=== PATIENT | female | born 1940 | race Caucasian/White ===

== ENCOUNTER 2016-06-02 12:08 | Emergency (ER) | payer MEDICARE ==
[~2016-06-02] VITALS: Ht 152.4 cm; Wt 90.0 kg
[~2016-06-02 12:08] MED LIST: FURO10S PO; GLIP5 PO; HYDROCODONE; LEVEMIR SQ; MENTANX; METH2.5 PO; POTA-243 PO; PRIL20TA2 PO; Z.0.UNKNOWN
[2016-06-02 12:12] VITALS: BP 135/63; PULSE 98; RESP 17; TEMP 98.8; O2SAT 98
[2016-06-02] MEDS ORDERED: AUGM875T PO (12:30)
[2016-06-02] MEDS ORDERED: SUDA120T PO (12:30)
[2016-06-02] MEDS ORDERED: MUCI30TA2 PO (12:30)
--- NOTE | 2016-06-02 12:30 | PD ---
HPI Chief Complaint: Cold / Flu Symptoms Time Seen by Provider: 12:20 Travel History International Travel<30 days: No Contact w/Intl Traveler<30days: No Traveled to known affect area: No History of Present Illness HPI Patient is a 76-year-old female here with flulike symptoms. She has had approximately 1.5-2 weeks of nasal congestion, postnasal drip. This results in a gaggy sensation with some nausea in the back of the pharynx. Associated cough , states she is bringing up the phlegm that stripping on the back of the throat. No fevers, chills. She feels fatigued. She's been trying Robitussin- DM and cough drops without much improvement of her symptoms. She is vacationing here at the [facility] from [place], traveled in March and has been well in the interim. [facility] Past Medical History Arthritis: Yes (R/A) Cancer: Yes (HX OF COLON) Cardiovascular Problems: Yes (PERIPHERAL EDEMA AT TIMES, SUBJECT TO CELLULITIS) Diabetes: Yes Diminished Hearing: No GERD: Yes Hypertension: Yes ?: Not Ovarian Cysts: Yes (REMOVED FROM RIGHT OVARY) Past Surgical History Abdominal Surgery: Yes (FATTY TUMOR REMOVED) Appendectomy: Yes Cholecystectomy: Yes Genitourinary Surgery: Yes (PART OF COLON REMOVED DUE TO CANCER) Gynecologic Surgery: Yes (UTERUS REMOVED) Other Surgery: Yes (DEVIATED SEPTUM REPAIRED) Social History Alcohol Use: No Tobacco Use: No Substance Use: No Allergies-Medications (Allergen,Severity, Reaction): Coded Allergies: Adhesives (Verified Allergy, Mild, rash, 06/02/16) Latex (Verified Allergy, Unknown, 06/02/16) Reported Meds & Prescriptions Reported Meds & Active Scripts Active Reported Prilosec Otc (Omeprazole Magnesium) 20 Mg Tab 0 PO DAILY Rheumatrex (Methotrexate) 2.5 Mg Tab 0 PO UNKNOWN DOSE K-Dur (Potassium Chloride) 10 Meq Tabcr 0 PO UNKNOWN DOSE Furosemide 10 Mg/Ml Aspen 0 PO UNKNOWN DOSE Unknown Meds (Miscellaneous Medication) Misc [Mentanx] [Hydrocodone] Levemir Insulin (Insulin Detemir) 100 Units/Ml Inj 0 SQ HS UNKNOWN DOSE Glucotrol (Glipizide) 5 Mg Tab 0 PO BID UNKNOWN DOSE Glipizide 5 Mg Tab 0 PO Review of Systems Except as stated in HPI: all other systems reviewed are Neg Physical Exam Narrative GENERAL: Elderly female in no acute distress SKIN: Focused skin assessment warm/dry. HEAD: Normocephalic. EYES: No scleral icterus. No injection or drainage. ENT: Nasal mucosal injection with posterior nasal drip. Posterior pharynx itself is minimally erythematous but no exudate or palatal petechiae.. Mucous membranes pink and moist. TMs clear bilaterally. NECK: Supple without stridor CARDIOVASCULAR: Regular rate and rhythm. No murmur appreciated. RESPIRATORY: No accessory muscle use. Clear to auscultation. Breath sounds equal bilaterally. GASTROINTESTINAL: Abdomen soft, non-tender, nondistended. Obese MUSCULOSKELETAL: No obvious deformities. No edema. NEUROLOGICAL: Awake and alert. Motor grossly within normal limits. Normal speech. PSYCHIATRIC: Appropriate mood and affect; insight and judgment normal. Data Data Last Documented VS Vital Signs Date Time Temp Pulse Resp B/P Pulse Ox O2 Delivery O2 Flow Rate FiO2 06/02/16 12:12 98.8 98 17 135/63 98 MDM Medical Decision Making Medical Screen Exam Complete: Yes Emergency Medical Condition: Yes Medical Record Reviewed: Yes Differential Diagnosis 76-year-old female here with 1.5-2 weeks of nasal congestion, postnasal drip, sore throat and cough. Exam is consistent with sinusitis, viral versus bacterial versus allergic. I think her postnasal drip as well as contributing to her sore throat and cough. Narrative Course Patient is overall well-appearing. Given the duration of her symptoms we'll treat with antibiotics, and nasally congestion and an expectorant Diagnosis Primary Impression: Sinusitis Qualified Code: J01.00 - Acute non-recurrent maxillary sinusitis Referrals: Primary Care Physician as needed Patient Instructions: General Instructions, Sinusitis (ED) Additional Instructions: Antibiotics, decongestions as prescribed. Med/Other Pt SpecificInfo: Prescription(s) given Scripts Pseudoephedrine ER 12 HR (Sudafed 12 Hour)120 Mg [id number] Mg PO BID 7 Days Prov:Shari Eldridge MD 06/02/16 Dextromethorphan-Guaifenesin (Mucinex DM)30-600 Mg Tab1 Tab PO BID PRN (CHEST CONGESTION AND/OR COUGH) #14 TAB Ref 0 Prov:Shari Eldridge MD 06/02/16 Amoxicillin-Clavulanate (Augmentin)875-125 mg [id number] Mg PO BID 7 Days Ref 0 not for use in CrCl <30 ml/min. Prov:Shari Eldridge MD 06/02/16 Disposition: 01 DISCHARGE HOME Condition: Stable Shari Eldridge MD Jun 02, 2016 12:30
== END 2016-06-02 12:58 | disposition home or self-care (01) ==
LOC: PHED 12:08
DX: J01.00 Acute maxillary sinusitis, unspecified (principal); R53.83 Other fatigue; E11.9 Type 2 diabetes mellitus without complications; I10 Essential (primary) hypertension; Z79.4 Long term (current) use of insulin; Z87.39 Personal history of other diseases of the musculoskeletal system and connective tissue; Z87.19 Personal history of other diseases of the digestive system; Z86.79 Personal history of other diseases of the circulatory system; Z85.038 Personal history of other malignant neoplasm of large intestine
CPT/HCPCS: 99283

== ENCOUNTER 2016-06-04 12:48 | Emergency (ER) | payer MEDICARE ==
[~2016-06-04] VITALS: Ht 152.4 cm; Wt 85.0 kg
[~2016-06-04 12:48] MED LIST changes: +AUGM875T PO; -FURO10S PO; -GLIP5 PO; -HYDROCODONE; -LEVEMIR SQ; -METH2.5 PO; +MUCI30TA2 PO; -POTA-243 PO; -PRIL20TA2 PO; +SUDA120T PO; -Z.0.UNKNOWN
[2016-06-04 12:56] VITALS: BP 172/77; TEMP 97.9; O2SAT 99
[2016-06-04 13:06] VITALS: BP 172/77; PULSE 112; RESP 18; TEMP 97.9; O2SAT 100
[2016-06-04] MEDS ORDERED: ZOFR4TAB PO (13:42)
[2016-06-04] MEDS ORDERED: ONDANSETRON ODT 4 MG TAB PO ONE (13:45)
--- NOTE | 2016-06-04 13:46 | PD ---
HPI Chief Complaint: Respiratory Symptoms Time Seen by Provider: 13:17 Travel History International Travel<30 days: No Contact w/Intl Traveler<30days: No Traveled to known affect area: No History of Present Illness HPI This patient was seen here 2 days ago for sinus congestion and flulike symptoms. sHe started taking Sudafed and Augmentin. Shortly thereafter she developed diarrhea. She now has nausea vomiting diarrhea. No fever. She is not short of breath. Severity symptoms is moderate. No alleviating factors. PFSH Past Medical History Hx Anticoagulant Therapy: Yes (asa 81 mg) Arthritis: Yes (R/A) Cancer: Yes (HX OF COLON) Cardiovascular Problems: Yes (htn on meds) Diabetes: Yes (type 2) Patient Takes Glucophage: No Diminished Hearing: No GERD: Yes Hypertension: Yes ?: Not Ovarian Cysts: Yes (REMOVED FROM RIGHT OVARY) Past Surgical History Abdominal Surgery: Yes (FATTY TUMOR REMOVED) Appendectomy: Yes Cholecystectomy: Yes Genitourinary Surgery: Yes (PART OF COLON REMOVED DUE TO CANCER) Gynecologic Surgery: Yes (UTERUS REMOVED) Other Surgery: Yes (DEVIATED SEPTUM REPAIRED) Social History Alcohol Use: No Tobacco Use: No Substance Use: No Allergies-Medications (Allergen,Severity, Reaction): Coded Allergies: Adhesives (Verified Allergy, Mild, rash, 06/04/16) Latex (Verified Allergy, Unknown, 06/04/16) Reported Meds & Prescriptions Reported Meds & Active Scripts Active Sudafed 12 Hour (Pseudoephedrine HCl) 120 Mg Tab 120 Mg PO BID 7 Days Mucinex DM (Dextromethorphan-Guaifenesin) 30-600 Mg Tab 1 Tab PO BID PRN Augmentin (Amoxicillin-Clavulanate) 875-125 mg Tab 875 Mg PO BID 7 Days not for use in CrCl <30 ml/min. Reported [Mentanx] Review of Systems General / Constitutional: No: Fever HENT: Positive: Rhinorrhea, Congestion, No: Headaches Cardiovascular: No: Chest Pain or Discomfort Gastrointestinal: Positive: Nausea, Vomiting, Diarrhea Physical Exam Narrative GENERAL: Well-nourished, well-developed patient in no apparent distress. SKIN: Focused skin assessment reveals no rash and nodules. Skin is Warm and dry. HEAD: Atraumatic. Normocephalic. EYES: Pupils equal and round. No scleral icterus. No injection or drainage. ENT: No nasal bleeding or discharge. Mucous membranes pink and moist. NECK: Trachea midline. No JVD. CARDIOVASCULAR: Regular rate and rhythm. No murmur appreciated. RESPIRATORY: No accessory muscle use. Clear to auscultation. Breath sounds equal bilaterally. GASTROINTESTINAL: Abdomen soft, non-tender, nondistended. Hepatic and splenic margins not palpable. MUSCULOSKELETAL: No obvious deformities. No clubbing. No cyanosis. No edema. NEUROLOGICAL: Awake and alert. No obvious cranial nerve deficits. Motor grossly within normal limits. Normal speech. PSYCHIATRIC: Appropriate mood and affect; insight and judgment normal. Data Data Last Documented VS Vital Signs Date Time Temp Pulse Resp B/P Pulse Ox O2 Delivery O2 Flow Rate FiO2 06/04/16 13:06 97.9 112 18 172/77 100 Orders Ondansetron Odt (Zofran Odt) (06/04/16 13:45) [facility] Medical Decision Making Medical Screen Exam Complete: Yes Emergency Medical Condition: Yes Medical Record Reviewed: Yes Differential Diagnosis Flu syndrome, viral gastroenteritis, medication side effect Narrative Course I have reviewed the patient's electronic medical record. I reviewed her visit from 2 days ago Patient had normal vital signs 2 days ago. Now on Sudafed she is mildly tachycardic and hypertensive. I've advised her to stop this medication and check and record her blood pressure daily. Patient developed diarrhea shortly after starting Augmentin. She just may have had progression of her virus into the GI tract causing symptoms or could be medication side effect. Difficult to tell. I've advised her to stop this as well. I think her presentation is clearly viral in nature and I'm not recommending antibiotics if there is a potential for side effects being significant. I gave her dose of Zofran here and prescription for the same I'm expecting gradual resolution of symptoms. I don't see indication for extensive workup at this time. Diagnosis Primary Impression: Nausea vomiting and diarrhea Additional Impression: Medication side effect Qualified Code: T88.7XXA - Medication side effect, initial encounter Additional Instructions: The patient was advised to follow up with their physician and return if they worsen. Med/Other Pt SpecificInfo: Prescription(s) given Scripts Ondansetron (Zofran)4 Mg Tab4 Mg PO Q6HR PRN (NAUSEA OR VOMITING) #12 TAB Ref 0 Prov:Alejo Davalos MD 06/04/16 Disposition: 01 DISCHARGE HOME Condition: Stable Alejo Davalos MD Jun 04, 2016 13:46
== END 2016-06-04 14:15 | disposition home or self-care (01) ==
LOC: PHED 12:48
DX: T36.0X1A Poisoning by penicillins, accidental (unintentional), initial encounter (principal); T44.991A Poisoning by other drug primarily affecting the autonomic nervous system, accidental (unintentional), initial encounter; R19.7 Diarrhea, unspecified; I10 Essential (primary) hypertension; M06.9 Rheumatoid arthritis, unspecified; E11.9 Type 2 diabetes mellitus without complications; Y92.9 Unspecified place or not applicable; Z79.82 Long term (current) use of aspirin
CPT/HCPCS: 99283

== ENCOUNTER 2017-05-02 12:55 | Emergency (ER) | payer MEDICARE ==
[~2017-05-02] VITALS: Ht 152.4 cm; Wt 94.0 kg
[~2017-05-02 12:55] MED LIST changes: +HUMIBIDDM PO; -MUCI30TA2 PO; +ZOFR4TAB PO
[2017-05-02 13:12] VITALS: BP 166/74; PULSE 98; RESP 18; TEMP 99.2; O2SAT 97
[2017-05-02] MEDS ORDERED: CLAR10CA3 PO (13:52)
[2017-05-02] MEDS ORDERED: FENO160T PO (13:52)
[2017-05-02] MEDS ORDERED: OMEGCAP PO (13:52)
[2017-05-02] MEDS ORDERED: MULT-65 PO (13:52)
[2017-05-02] MEDS ORDERED: GABA400C5 PO (13:52)
[2017-05-02] MEDS ORDERED: SITA1TAB2 PO (13:52)
[2017-05-02] MEDS ORDERED: LISI10TA3 PO (13:52)
[2017-05-02] MEDS ORDERED: CALC1TAB87 PO (13:52)
[2017-05-02] MEDS ORDERED: INSU1INJ5 SQ (13:52)
[2017-05-02] MEDS ORDERED: KLOR20TA3 PO (13:52)
[2017-05-02] MEDS ORDERED: HYDR-3583 PO (13:52)
[2017-05-02] MEDS ORDERED: ASPI81CH6 CHEW (13:52)
[2017-05-02] MEDS ORDERED: TEMA30CA PO (13:52)
[2017-05-02] MEDS ORDERED: FURO40TA PO (13:52)
[2017-05-02] MEDS ORDERED: METF1000 PO (13:52)
--- NOTE | 2017-05-02 14:13 | PD ---
HPI Chief Complaint: Musculoskeletal Complaint Time Seen by Provider: 13:45 Travel History International Travel<30 days: No Contact w/Intl Traveler<30days: No Traveled to known affect area: No History of Present Illness HPI 77-year-old female with PMH of RA, HTN, DM presents to the ED for evaluation of back and buttock pain after mechanical fall. Patient states that she lost her balance, fell directly onto her buttocks, landing on laminate nomi. Denies hitting her head or LOC. She was able to get up from the ground with help. She 's been able to walk and go upstairs but states that she has 8/10 pain in the back and buttocks. Pain is worsened by sitting, improved by standing or lying on her side. She denies radiation of the pain, numbness, tingling, weakness, limitations to range of motion of the lower extremities. She endorses chronic urinary incontinence. Denies fecal incontinence. She denies previous back injury. He did at home with 10 mg of [place], which she takes for her rheumatoid arthritis with no improvement in symptoms. Last dose around 9 AM. PFSH Past Medical History Hx Anticoagulant Therapy: Yes ([id number]) Anemia: Yes Arthritis: Yes (R/A) Cancer: Yes (HX OF COLON) Cardiovascular Problems: Yes (htn on meds) Diabetes: Yes Patient Takes Glucophage: Yes Diminished Hearing: No GERD: Yes Hypertension: Yes Neurologic: Yes (NEUROPATHY) Influenza Vaccination: Yes ?: Not Ovarian Cysts: Yes (REMOVED FROM RIGHT OVARY) Past Surgical History Abdominal Surgery: Yes (FATTY TUMOR REMOVED) Appendectomy: Yes Cholecystectomy: Yes Genitourinary Surgery: Yes (PART OF COLON REMOVED DUE TO CANCER) Gynecologic Surgery: Yes (UTERUS REMOVED) Other Surgery: Yes (DEVIATED SEPTUM REPAIRED) Social History Alcohol Use: Yes (RARE) Tobacco Use: No Substance Use: No Allergies-Medications (Allergen,Severity, Reaction): Coded Allergies: adhesive (Unverified Allergy, Mild, rash, 05/02/17) latex (Unverified Allergy, Unknown, RASH, 05/02/17) Reported Meds & Prescriptions Reported Meds & Active Scripts Active [place] (Hydrocodone-Acetaminophen) 10-325 Mg Tab 1 Tab PO Q6H PRN Reported Temazepam 30 Mg Cap 30 Mg PO HS PRN Januvia (Sitagliptin Phosphate) 100 Mg Tab 100 Mg PO DAILY Klor-Con M20 (Potassium Chloride Microencaps) 20 Meq Tab 20 Meq PO DAILY Lisinopril 10 Mg Tab 10 Mg PO DAILY Multi-Vitamin Daily (Multiple Vitamin) 1 Tab Tab 1 Tab PO DAILY Gabapentin 400 Mg Cap 400 Cap PO TID Hydrocodone-Acetaminophen 10-325 mg Tab 1 Tab PO Q8HR PRN Metformin (Metformin HCl) 1,000 Mg Tab 1,000 Mg PO BIDPC Levemir Flextouch Pen Inj (Insulin Detemir) 300 unit/3 ML Pen 1 Units SQ Furosemide 40 Mg Tab 40 Mg PO DAILY Aspirin Low Dose (Aspirin) 81 Mg Chew 81 Mg CHEW DAILY Claritin (Loratadine) 10 Mg Cap 10 Mg PO DAILY Fenofibrate 160 Mg Tab 160 Mg PO DAILY Calcium 600 with Vitamin D (Calcium Carbonate-Cholecalciferol) 600-400 mg-Unit Tab 1 Tab PO DAILY [place]-3 Fish Oil/Vitamin (Fish Oil-Cholecalciferol) 1,000-1,000 Mg Cap 1 Cap PO DAILY Review of Systems Except as stated in HPI: all other systems reviewed are Neg Physical Exam Narrative GENERAL: Well-nourished, well-developed obese white female in no acute distress. SKIN: Focused skin assessment warm/dry. Ecchymosis over the lower back. HEAD: Normocephalic. Atraumatic. EYES: No scleral icterus. No injection or drainage. NECK: Supple, trachea midline. No JVD or lymphadenopathy. CARDIOVASCULAR: Regular rate and rhythm without murmurs, gallops, or rubs. RESPIRATORY: Breath sounds clear and equal bilaterally. No accessory muscle use. GASTROINTESTINAL: Abdomen soft, non-tender, nondistended. Active bowel sounds. MUSCULOSKELETAL: No cyanosis, or edema. 5/5 strength in the lower extremities bilaterally. Neurovascularly intact distally in the lower extremities bilaterally. BACK: No obvious deformity. No CVA tenderness. Tender to palpation of the midline spine and the lower thoracic/upper lumbar area. Tender to palpation of the sacrum and sitting bones. Data Data Last Documented VS Vital Signs Date Time Temp Pulse Resp B/P (MAP) Pulse Ox O2 Delivery O2 Flow Rate FiO2 05/02/17 16:54 18 05/02/17 13:12 99.2 98 166/74 (104) [address] Thor Spine W/O Contrast (05/02/17 14:06) Ct Lumb Spine W/O Contrast (05/02/17 14:06) Sacrum And Coccyx (05/02/17 ) Acetamin-Hydrocod 325-10 Mg ([place] 10-32 (05/02/17 14:15) Radiology Film Requests (05/02/17 ) Ed Discharge Order (05/02/17 16:58) MDM Medical Decision Making Medical Screen Exam Complete: Yes Emergency Medical Condition: Yes Differential Diagnosis Fall versus back pain versus compression fracture versus sacral fracture versus other Narrative Course 77-year-old female with PMH of RA, HTN, DM presents to the ED for evaluation of back and buttock pain after mechanical fall. Patient states that she lost her balance, fell directly onto her buttocks, landing on laminate nomi. Denies hitting her head or LOC. She was able to get up from the ground with help. She 's been able to walk and go upstairs but states that she has 8/10 pain in the back and buttocks. Vitals reviewed. On exam the patient has bruising along the lower aspect of the buttocks as well as tenderness to palpation in the midline lower thoracic/upper lumbar region of the spine as well as sacral tenderness to palpation. She was administered [address] imaging of the thoracic and lumbar spine reveals no acute bony injury per radiology read. No fracture or dislocation on the sacrum and coccyx x-rays. I discussed the results of the workup with the patient. I provided her with a CD of the imaging. She states that she'll be returning home shortly and would like to have these. She is instructed to continue with at home [place], return to normal , gentle activity as tolerated, use a doughnut pillow as stated. She requested a few doses of the [place] and was provided with this. Discussed reasons to return to the ED. She is stable and discharged home. Diagnosis Primary Impression: Acute exacerbation of chronic low back pain Additional Impressions: Musculoskeletal back pain Fall from standing Qualified Codes: W19.XXXA - Unspecified fall, initial encounter Referrals: Neurologist Primary Care Physician Additional Instructions: Rest, hydrate. Resume normal, gentle activities as tolerated. A doughnut pillow may help to improve your pain while sitting. Take pain medications as they are prescribed. Follow up with your neurologist or primary care provider as discussed. Return to the ED for any urgent or emergent medical condition. Scripts Hydrocodone-Acetaminophen ([place]) 10-325 Mg Tab 1 TAB PO Q6H Y for PAIN, #12 TAB 0 Refills Prov: Alejo Davalos MD 05/02/17 Disposition: 01 DISCHARGE HOME Condition: Stable [place] Peña May 02, 2017 14:13
[2017-05-02] MEDS ORDERED: ACETAMINOPHEN/HYDROcodone 325 MG/10 MG TAB PO ONE (14:15)
--- NOTE | 2017-05-02 15:30 | RADRPT ---
EXAM DATE/TIME: 05/02/2017 14:19 [facility] COMPARISON: CT LUMBAR SPINE W/O CONTRAST, May 02, 2017, 14:44. INDICATIONS : Fall, complains of pain in sacrum. MEDICAL HISTORY : None. SURGICAL HISTORY : None. ENCOUNTER: Initial ACUITY: 3 days PAIN SCORE: 5/10 LOCATION: Sacrum and coccyx FINDINGS: Two-view examination of the sacrum and coccyx demonstrates no evidence of fracture or malalignment. The sacral ala and foramina appear symmetric and intact. The coccyx appears intact. The prevertebra l soft tissues are within normal limits. CONCLUSION: 1. No displaced fractures or dislocation. MRI examination may be performed if there is continued clin ical concern regarding sacral insufficiency fracture. Joshua Winn MD on May 02, 2017 at 15:25 Board Certified Radiologist. This report was verified electronically.
--- NOTE | 2017-05-02 15:34 | RADRPT ---
EXAM DATE/TIME: 05/02/2017 14:44 [facility] COMPARISON: No previous studies available for comparison. INDICATIONS : Trauma. Fall. Upper and lower back pain. RADIATION DOSE: 43.36 CTDIvol (mGy) ; Combined studies - Thoracic Spine/Lumbar Spine MEDICAL HISTORY : Carcinoma, colon. Diabetes mellitus type 2. Gastroesophageal reflux disease.Hypertension. SURGICAL HISTORY : Appendectomy. Cholecystectomy. ENCOUNTER: Initial ACUITY: 4 - 6 days PAIN SCALE: 7/10 LOCATION: Thoracic spine TECHNIQUE: Volumetric scanning of the thoracic spine was performed. Multiplanar reconstructions in the sagittal , coronal and oblique axial planes were performed. Using automated exposure control and adjustment o f the mA and/or kV according to patient size, radiation dose was kept as low as reasonably achievable to obtain optimal diagnostic quality images. DICOM format image data is available electronically f or review and comparison. FINDINGS: There is no acute compression fracture or subluxation of the thoracic spine. Diffuse degenerative ekaterina nges are noted throughout the thoracic spine. There is no significant spinal stenosis. No significant neural foraminal narrowing is noted. There is pleural thickening within the right lung base with clemente e pleural calcification. CONCLUSION: 1. No acute compression fracture or subluxation. 2. Diffuse degenerative changes throughout the thoracic spine. 3. Pleural thickening and pleural calcification within the right lung base. Percy Sprague MD on May 02, 2017 at 15:25 Board Certified Radiologist. This report was verified electronically.
--- NOTE | 2017-05-02 15:57 | RADRPT ---
EXAM DATE/TIME: 05/02/2017 14:44 [facility] COMPARISON: No previous studies available for comparison. INDICATIONS : Trauma. Fall. Upper and lower back pain. RADIATION DOSE: 43.36 CTDIvol (mGy) ; Combined studies - Thoracic Spine/Lumbar Spine MEDICAL HISTORY : Carcinoma, colon. Diabetes mellitus type 2. Gastroesophageal reflux disease.Hypertension. SURGICAL HISTORY : Appendectomy. Cholecystectomy. ENCOUNTER: Initial ACUITY: 4 - 6 days PAIN SCALE: 7/10 LOCATION: Lumbar spine. TECHNIQUE: Volumetric scanning of the lumbar spine was performed. Multiplanar reconstructions in the sagittal, coronal and oblique axial planes were performed. Using automated exposure control and adjustment of the mA and/or kV according to patient size, radiation dose was kept as low as reasonably achievable t o obtain optimal diagnostic quality images. DICOM format image data is available electronically for review and comparison. FINDINGS: Grade I anterolisthesis of L4 in relation L5 is noted. No pars defect is noted. Diffuse degenerative changes and scoliosis of the lumbar spine are noted. There is no acute compression fracture or multil evel spinal stenoses and foraminal narrowing are noted and will be described below. Diffuse osteoporo sis of the lumbar spine is noted. T12-L1: Minimal diffuse disc osteophyte complex is noted resulting in no spinal stenosis or neural foraminal narrowing. The facet joints and ligaments are unremarkable. L1-L2: Minimal circumferential spinal stenosis and bilateral foraminal narrowing are noted secondary to diff use disc osteophyte complex at mild facet joint hypertrophy bilaterally. No focal disc herniation is noted. L2-L3: Mild circumferential spinal stenosis, moderate left neural foraminal narrowing and mild right neurofo raminal narrowing are noted secondary to diffuse disc osteophyte complex and facet joint hypertrophy bilaterally. No focal disc herniation is noted. L3-L4: Moderate circumferential spinal stenosis and bilateral foraminal narrowing are noted secondary to dif fuse disc osteophyte complex and facet joint hypertrophy bilaterally. No focal disc herniation is not ed. L4-L5: Severe circumferential spinal stenosis and bilateral foraminal narrowing are noted secondary to diffu se disc osteophyte complex, grade I anterolisthesis of L4 in relation to L5, and facet joint hypertro phy bilaterally. No focal disc herniation is noted. L5-S1: Moderate circumferential spinal stenosis and bilateral foraminal narrowing are noted secondary to dif fuse disc osteophyte complex and facet joint hypertrophy bilaterally. No focal disc herniation is not ed. CONCLUSION: 1. Severe spinal stenosis and bilateral foraminal narrowing L4-5. 2. Moderate spinal stenosis and bilateral at L3-4 and L5-S1. 3. Mild spinal stenosis, moderate left neural foraminal narrowing and mild right neural foraminal soumya rowing at L2-3. 4. Minimal spinal stenosis and bilateral foraminal narrowing at L1-2. 5. Grade I anterolisthesis of L4 in relation to L5. 6. Diffuse degenerative disc disease throughout the lumbar spine. 7. Diffuse osteoporosis of the lumbar spine. 8. No acute compression fracture or pars defect. Percy Sprageu MD on May 02, 2017 at 15:46 Board Certified Radiologist. This report was verified electronically.
[2017-05-02] MEDS ORDERED: HYDR-3366 PO (16:14)
[2017-05-02 16:54] VITALS: RESP 18
== END 2017-05-02 18:01 | disposition home or self-care (01) ==
LOC: PHEFT 12:55
DX: M54.5 Low back pain (principal); G89.29 Other chronic pain; M06.9 Rheumatoid arthritis, unspecified; I10 Essential (primary) hypertension; E11.9 Type 2 diabetes mellitus without complications; D64.9 Anemia, unspecified; W01.198A Fall on same level from slipping, tripping and stumbling with subsequent striking against other object, initial encounter; Z79.01 Long term (current) use of anticoagulants
CPT/HCPCS: 72128; 72131; 72220; 99285

== ENCOUNTER 2017-05-12 14:05 | Emergency (ER) | payer MEDICARE ==
[~2017-05-12] VITALS: Ht 152.4 cm; Wt 88.0 kg
[~2017-05-12 14:05] MED LIST changes: +ASPI81CH6 CHEW; -AUGM875T PO; +CALC1TAB87 PO; +CLAR10CA3 PO; +FENO160T PO; +FURO40TA PO; +GABA400C5 PO; -HUMIBIDDM PO; +HYDR-3366 PO; +HYDR-3583 PO; +INSU1INJ5 SQ; +KLOR20TA3 PO; +LISI10TA3 PO; -MENTANX; +METF1000 PO; +MULT-65 PO; +OMEGCAP PO; +SITA1TAB2 PO; -SUDA120T PO; +TEMA30CA PO; -ZOFR4TAB PO
[2017-05-12 14:24] VITALS: BP 150/66; PULSE 87; RESP 16; TEMP 97.8; O2SAT 96
[2017-05-12] MEDS ORDERED: oxyCODONE/ACETAMINOPHEN 5 MG/325 MG TAB PO ONE (16:45)
[2017-05-12] MEDS ORDERED: KETOROLAC TROMETHAMINE 60 MG/2 ML (IM) VIAL IM ONE (16:45)
[2017-05-12] MEDS ORDERED: PERC5TAB12 PO (16:46)
--- NOTE | 2017-05-12 16:46 | PD ---
HPI Chief Complaint: Back/ Neck Pain or Injury Time Seen by Provider: 16:34 Travel History International Travel<30 days: No Contact w/Intl Traveler<30days: No Traveled to known affect area: No History of Present Illness HPI 77-year-old female here with continued pain in her low back after a fall last week. She was seen and evaluated in the ED after the fall and had negative CT scan and x-rays at that time. She reports her Portal chronic pain medication is not alleviating her symptoms and she is concerned that she will not be able to sit to drive back to [place] where she lives with her partner this week. She denies any fecal incontinence, paresthesia or weakness of the extremities. Severity is moderate. Aggravated by movement and slightly alleviated with rest. She denies a new trauma or fall since she was last evaluated. PFSH Past Medical History Hx Anticoagulant Therapy: Yes ([id number]) Anemia: Yes Arthritis: Yes (R/A) Cancer: Yes (HX OF COLON) Cardiovascular Problems: Yes (htn on meds) Diabetes: Yes Diminished Hearing: No GERD: Yes Hypertension: Yes Neurologic: Yes (NEUROPATHY) Ovarian Cysts: Yes (REMOVED FROM RIGHT OVARY) Past Surgical History Abdominal Surgery: Yes (FATTY TUMOR REMOVED) Appendectomy: Yes Cholecystectomy: Yes Genitourinary Surgery: Yes (PART OF COLON REMOVED DUE TO CANCER) Gynecologic Surgery: Yes (UTERUS REMOVED) Other Surgery: Yes (DEVIATED SEPTUM REPAIRED) Social History Alcohol Use: Yes (RARE) Tobacco Use: No Substance Use: No Allergies-Medications (Allergen,Severity, Reaction): Coded Allergies: adhesive (Unverified Allergy, Mild, rash, 05/12/17) latex (Unverified Allergy, Unknown, RASH, 05/12/17) Reported Meds & Prescriptions Reported Meds & Active Scripts Active Portal (Hydrocodone-Acetaminophen) 10-325 Mg Tab 1 Tab PO Q6H PRN Reported Temazepam 30 Mg Cap 30 Mg PO HS PRN Januvia (Sitagliptin Phosphate) 100 Mg Tab 100 Mg PO DAILY Klor-Con M20 (Potassium Chloride Microencaps) 20 Meq Tab 20 Meq PO DAILY Lisinopril 10 Mg Tab 10 Mg PO DAILY Multi-Vitamin Daily (Multiple Vitamin) 1 Tab Tab 1 Tab PO DAILY Gabapentin 400 Mg Cap 400 Cap PO TID Hydrocodone-Acetaminophen 10-325 mg Tab 1 Tab PO Q8HR PRN Metformin (Metformin HCl) 1,000 Mg Tab 1,000 Mg PO BIDPC Levemir Flextouch Pen Inj (Insulin Detemir) 300 unit/3 ML Pen 1 Units SQ Furosemide 40 Mg Tab 40 Mg PO DAILY Aspirin Low Dose (Aspirin) 81 Mg Chew 81 Mg CHEW DAILY Claritin (Loratadine) 10 Mg Cap 10 Mg PO DAILY Fenofibrate 160 Mg Tab 160 Mg PO DAILY Calcium 600 with Vitamin D (Calcium Carbonate-Cholecalciferol) 600-400 mg-Unit Tab 1 Tab PO DAILY [place]-3 Fish Oil/Vitamin (Fish Oil-Cholecalciferol) 1,000-1,000 Mg Cap 1 Cap PO DAILY Review of Systems Except as stated in HPI: all other systems reviewed are Neg General / Constitutional: No: Fever Neurologic: No: Weakness Physical Exam Narrative GENERAL: Alert and well-appearing 77-year-old female SKIN: Warm and dry. HEAD: Normocephalic. Atraumatic EYES: No injection or drainage. NECK: Supple, trachea midline. CARDIOVASCULAR: Regular rate and rhythm. No murmur appreciated RESPIRATORY: Breath sounds equal bilaterally. No accessory muscle use. GASTROINTESTINAL: Abdomen soft, non-tender, nondistended. MUSCULOSKELETAL: No cyanosis, or edema. Normal strength and sensation in lower extremities. BACK: Reports generalized tenderness to the lumbar/sacral region without specific point tenderness without obvious deformity. No CVA tenderness. Data Data Last Documented VS Vital Signs Date Time Temp Pulse Resp B/P (MAP) Pulse Ox O2 Delivery O2 Flow Rate FiO2 05/12/17 14:24 97.8 87 16 150/66 (94) 96 Orders Orders Oxycodone-Acetamin 5-325 Mg (Percocet (05/12/17 16:45) Ketorolac Inj (Toradol Inj) (05/12/17 16:45) [facility] Medical Decision Making Medical Screen Exam Complete: Yes Emergency Medical Condition: Yes Differential Diagnosis Acute on chronic low back pain, number strain, lumbar/sacral/coccyx fracture Narrative Course 77-year-old female here with continued pain in her low back after a fall last week. She was seen and evaluated in the ED after the fall and had negative CT scan and x-rays at that time. She reports her Portal chronic pain medication is not alleviating her symptoms and she is concerned that she will not be able to sit to drive back to [place] where she lives with her partner this week. She denies any fecal incontinence, paresthesia or weakness of the extremities. She was given a dose of Toradol and Percocet and observed. She reports symptom improvement. She was observed ambulating. She is stable and ready for discharge. Diagnosis Primary Impression: Low back pain Qualified Codes: M54.5 - Low back pain Referrals: Pain Management Additional Instructions: Pain medication as directed. Return if he had new or worsening symptoms Disposition: 01 DISCHARGE HOME Condition: Stable Leda Whitmore May 12, 2017 16:46
== END 2017-05-12 17:47 | disposition home or self-care (01) ==
LOC: PHED 14:05 → PHEFT 17:47
DX: M54.5 Low back pain (principal); G89.29 Other chronic pain; D64.9 Anemia, unspecified; M06.9 Rheumatoid arthritis, unspecified; I10 Essential (primary) hypertension; K21.9 Gastro-esophageal reflux disease without esophagitis; E11.40 Type 2 diabetes mellitus with diabetic neuropathy, unspecified; Z85.118 Personal history of other malignant neoplasm of bronchus and lung; Z79.82 Long term (current) use of aspirin
CPT/HCPCS: 96372; 99284; J1885